=== PATIENT | female | born 1975 | race Two or more races ===

== ENCOUNTER 2023-10-29 10:18 | Inpatient (IN) | payer MEDICAID, OTHER ==
[~2023-10-29] VITALS: Ht 157.5 cm; Wt 80.0 kg
[2023-10-29] MEDS: SODIUM CHLORIDE 0.9% 1,000 ML IV ONE (11:14)
[2023-10-29 11:19] VITALS: PULSE 71; RESP 16; O2SAT 98
[2023-10-29 11:20] LABS: Basophils # (auto) 0 10 ^3/uL (0-0.2); Basophils % (auto) 0.4 % (0.0-2.0); Eosinophils # (auto) 0 10 ^3/uL (0-0.8); Hematocrit 32.6 % (36.0-46.0); Hemoglobin 10.3 g/dL (12.2-16.2); Lymphocytes # (auto) 2.8 10 ^3/uL (0.4-5.4); Neutrophils # (auto) 7.5 10 ^3/uL (1.6-8.6); Red Cell Distribution Width 16.6 % (11.8-14.3); White Blood Cell 11.2 10^3/uL (4.4-10.8)
[2023-10-29 11:23] LABS: Eosinophils % (auto) 0.3 % (0.0-7.0); Mean Corpuscular Hemoglobin 24.7 pg (28.0-32.0); Mean Corpuscular Hgb Conc. 31.7 g/dL (32.0-36.0); Mean Corpuscular Volume 77.9 fL (80.0-100.0); Monocytes # (auto) 0.8 10 ^3/uL (0-1.3); Monocytes % (auto) 7.3 % (0.0-12.0); Red Blood Cells 4.18 10^6/uL (4.0-5.20)
[2023-10-29 11:45] LABS: Alanine Aminotransferase 19 U/L (7-40); Albumin 4.1 g/dL (3.2-4.8); Alkaline Phosphatase 99 U/L (46-116); Anion Gap 7 (5-15); Aspartate Aminotransferase 14 U/L (13-40); BUN/Creatinine Ratio 18.8 (10.0-20.0); Blood Urea Nitrogen 9 mg/dL (9-23); Calcium 8.7 mg/dL (8.5-10.1); Carbon Dioxide 23 mmol/L (20-30); Chloride 109 mmol/L (98-107); Glucose 102 mg/dL (74-106); Magnesium 1.8 mg/dL (1.6-2.6); Potassium 3.5 mmol/L (3.5-5.1); Sodium 139 mmol/L (136-145)
[2023-10-29 11:46] LABS: Bilirubin, Total 0.6 mg/dL (0.2-1.0); Total Protein 6.7 g/dL (5.7-8.2)
[2023-10-29 11:59] LABS: Urine Bacteria None Seen /hpf (None Seen)
[2023-10-29 12:24] LABS: Urine Blood Negative /uL (Negative); Urine Clarity Clear (Clear); Urine Color Light-Yellow (Yellow); Urine Protein, UAD TRACE (Negative); Urine Specific Gravity 1.016 (1.001-1.035); Urine Urobilinogen Normal (Negative); Urine WBC 33 /hpf (0 - 5)
[2023-10-29] MEDS ORDERED: DOCUSATE SOD 100 MG CAP PO PRN (15:45)
[2023-10-29] MEDS: cefTRIAXone 1GM/50ML D5W 50 ML IV ONE (16:49)
[2023-10-29 16:51] LABS: % Iron Saturation 14.1 % (15-50)
[2023-10-29] MEDS: SODIUM CHLORIDE 0.9% 1,000 ML IV SCH (17:00)
[2023-10-29 17:05] LABS: Ferritin 4.7 ng/mL (10-291)
[2023-10-29 17:06] LABS: Folate (Folic Acid) 13.85 ng/mL (>5.38)
[2023-10-29] MEDS ORDERED: NITROGLYCERIN 0.4 MG SL TAB SL PRN (17:15)
[2023-10-29] MEDS ORDERED: MORPHINE SULFATE INJ 2 MG/ml SYRG IV PRN (17:15)
[2023-10-29] MEDS: MORPHINE SULFATE INJ 2 MG/ml SYRG IV PRN (17:58)
[2023-10-29] MEDS: ONDANSETRON HCL 4 MG/2 ML VIAL IV PRN (17:59)
[2023-10-29] MEDS: ASPirin 325 MG TAB PO ONE (18:51)
[2023-10-29] MEDS: CLOPIDOGREL BISULFATE 75 MG TAB PO ONE (18:51)
[2023-10-29 19:07] LABS: Amphetamine Screen, Urine Neg (NEGATIVE); Barbiturate Scree,Urine Neg (NEGATIVE); Benzodiazephine Screen, Urine Neg (NEGATIVE); Cocaine Screen, Urine Neg (NEGATIVE); Opiate Scree,Urine Neg (NEGATIVE); Phencyclidine Screen, Urine Neg (NEGATIVE)
[2023-10-29 19:08] LABS: Cannabinoid Screen, Urine Neg (NEGATIVE)
[2023-10-29 20:05] LABS: Magnesium 1.8 mg/dL (1.6-2.6)
[2023-10-29 21:09] VITALS: BP 104/59; PULSE 59; RESP 20; TEMP 98.1; O2SAT 95
[2023-10-29 21:10] VITALS: PULSE 65; PULSE 77; RESP 16; O2SAT 98
[2023-10-29] MEDS: ATORVASTATIN 20 MG TAB PO SCH (22:17)
[2023-10-30 01:00] VITALS: BP 91/42; PULSE 64; RESP 18; TEMP 98.3; O2SAT 94
[2023-10-30 01:15] VITALS: BP 99/50; PULSE 60
[2023-10-30 05:00] VITALS: BP 90/49; PULSE 61; RESP 19; TEMP 98.3; O2SAT 96
[2023-10-30 07:19] LABS: Alanine Aminotransferase 15 U/L (7-40); Albumin 3.2 g/dL (3.2-4.8); Alkaline Phosphatase 76 U/L (46-116); Anion Gap 4 (5-15); Aspartate Aminotransferase 11 U/L (13-40); BUN/Creatinine Ratio 14.6 (10.0-20.0); Blood Urea Nitrogen 7 mg/dL (9-23); Calcium 7.9 mg/dL (8.5-10.1); Carbon Dioxide 23 mmol/L (20-30); Chloride 114 mmol/L (98-107); Glucose 104 mg/dL (74-106); LDL Cholesterol 97 mg/dL (< 100); Potassium 3.7 mmol/L (3.5-5.1); Sodium 141 mmol/L (136-145); Triglycerides 157 mg/dL (< 150)
[2023-10-30 07:20] LABS: Bilirubin, Total 0.3 mg/dL (0.2-1.0); Cholesterol 161 mg/dL (< 200); HDL Cholesterol 46 mg/dL (40-59); Total Protein 5.1 g/dL (5.7-8.2)
[2023-10-30 07:23] LABS: Basophils # (auto) 0 10 ^3/uL (0-0.2); Basophils % (auto) 0.3 % (0.0-2.0); Eosinophils # (auto) 0.1 10 ^3/uL (0-0.8); Eosinophils % (auto) 0.7 % (0.0-7.0); Hematocrit 27.9 % (36.0-46.0); Hemoglobin 8.8 g/dL (12.2-16.2); Lymphocytes # (auto) 2.8 10 ^3/uL (0.4-5.4); Lymphocytes % (auto) 30.9 % (10.0-50.0); Mean Corpuscular Hemoglobin 25.1 pg (28.0-32.0); Mean Corpuscular Hgb Conc. 31.5 g/dL (32.0-36.0); Mean Corpuscular Volume 79.5 fL (80.0-100.0); Monocytes # (auto) 0.9 10 ^3/uL (0-1.3); Monocytes % (auto) 9.6 % (0.0-12.0); Neutrophils # (auto) 5.2 10 ^3/uL (1.6-8.6); Neutrophils % (auto) 58.5 % (37.0-80.0); Nucleated Red Blood Cells % 0.1 %; Red Cell Distribution Width 16.6 % (11.8-14.3)
[2023-10-30 08:00] VITALS: PULSE 61
[2023-10-30 09:00] VITALS: BP 107/61; PULSE 64; RESP 16; TEMP 97.9; O2SAT 96
[2023-10-30] MEDS: cefTRIAXone 1GM/50ML D5W 50 ML IV SCH (10:00)
[2023-10-30] MEDS: ASPirin 81 mg TAB PO SCH (10:05)
[2023-10-30] MEDS: CLOPIDOGREL BISULFATE 75 MG TAB PO SCH (10:05)
[2023-10-30 10:55] VITALS: BP_SYST 103; BP_SYST 105; BP_SYST 95; BP_DIAS 55; BP_DIAS 58; BP_DIAS 63; PULSE 60; PULSE 66; PULSE 71
[2023-11-01 03:06] LABS: RPR Non Reactive (Non Reactive)
== END 2023-10-30 17:35 | disposition home or self-care (01) | DRG 422 ==
LOC: ER 10:18 → TELE 17:04 → TELE-EAST 21:09
PROVIDERS: ADMIT Nurse Practitioner Family; ATTEND Nurse Practitioner Family
DX: E86.0 Dehydration (principal); S09.8XXA Other specified injuries of head, initial encounter; D64.9 Anemia, unspecified; S00.81XA Abrasion of other part of head, initial encounter; Z79.899 Other long term (current) drug therapy; W18.39XA Other fall on same level, initial encounter; Y93.89 Activity, other specified; Y92.89 Other specified places as the place of occurrence of the external cause; Y99.8 Other external cause status
CPT/HCPCS: 36415; 70450; 71045; 72125; 80053; 80061; 80307; 80320; 81001; 82607; 82728; 82746; 82962; 83540; 83550; 83605; 83615; 83735; 84100; 84443; 84484; 84702; 85025; 85045; 86592; 93005; 93306; 93886; 96361; 96365; 96366; 96375; 97116; 97163; 97530; G0378; J2405

== ENCOUNTER 2025-04-10 04:35 | Emergency (ER) | payer MEDICAID ==
[~2025-04-10] VITALS: Ht 157.5 cm; Wt 79.1 kg
--- NOTE | 2025-04-10 04:52 | ED.PDOC ---
GI ASSESSMENT HPI Comments PATIENT PRESENTS TO ED WITH COMPLAINTS OF INTERMITTENT DULL PELVIC DISCOMFORT, AND CONSTIPATION X1 WEEK. LAST BOWEL MOVEMENT YESTERDAY. PATIENT DENIES N/V. PREVIOUS EPISODE APPOX 1-2 WEEKS AGO. DENIES FEVER, CHILLS, NAUSEA, VOMITING, DIARRHEA, VAGINAL DISCHARGE, OR URINARY SYMPTOMS. Chief Complaint: Constipation Time Seen by MD: 04:48 Primary Care Provider: Unknown Reviewed Notes: [employer] Notes, Medications, Allergies Allergies: Coded Allergies: NO KNOWN ALLERGIES (Unverified , 10/29/23) Home Meds No Active Prescriptions or Reported Meds Information Source: Patient Mode of Arrival: Ambulatory Past Medical History PAST MEDICAL HISTORY: Denies Surgical History: Denies all surgeries CRATE TIER History: No Pertinent CRATE TIER History Family History Family History: Reviewed,noncontributory to illness, No family hx of Cancer, No family hx of DM, No family hx of Heart linn, No family hx of HTN, No family hx ofKidney linn, No family hx of Liver linn, No family hx of Lung linn, No family hx of Stroke Social History Smoker: Non-Smoker Alcohol: Denies ETOH Use Drugs: Denies Drug Use Lives In: Home All Other Systems: Reviewed and Negative (SEE HPI) Physical Exam General Appearance: No Apparent Distress, Normal HEENT: Pharynx Normal Neck: Full Range of Motion, Non-Tender Respiratory: Lungs Clear, No Respiratory Distress, Normal Breath Sounds Cardiovascular: No Edema, No JVD, No Murmur, No Gallop, Normal Peripheral Pulses, Regular Rate/Rhythm Breast Exam: Deferred Gastrointestinal: No Organomegaly, No Pulsatile Mass, Normal Bowel Sounds, Soft, Tenderness (LEFT LOWER QUADRANT SUPRAPUBIC) Genitalia: Deferred Pelvic: Deferred Rectal: Deferred Extremities: Normal range of motion, No pedal edema Musculoskeletal : Apperance: Normal Neurologic: Alert, No Motor Deficits, Normal Affect, Normal Mood, No Sensory Deficits Cerebellar Function: Normal Reflexes: NOT DONE Skin: Dry, Normal Color, Warm Lymphatic: No Adenopathy Was a procedure done? Was a procedure done?: No GI differential Dx Differential Diagnosis: Bowel Obstruction, Cholangitis, Cholecystitis, Constipation, Diverticular disease, Inflammatory BD, PID, Urinary Obstruction, UTI, Urolithiasis, Kidney Stone X-Ray, Labs, Meds, VS Vital Signs Date Time Temp Pulse Resp B/P (MAP) Pulse Ox O2 Delivery O2 Flow Rate FiO2 12/14/25 05:00 97.8 79 18 131/60 (83) 95 97.8 04/10/25 04:37 97.9 84 18 157/112 97 97.9 Lab Test 04/10/25 05:17 04/10/25 05:00 Range/Units White Blood Count 12.9 H 4.4-10.8 10^3/uL Red Blood Count 4.55 4.0-5.20 10^6/uL Hemoglobin 14.1 12.2-16.2 g/dL Hematocrit 41.6 36.0-46.0 % Mean Corpuscular Volume 91.3 80.0-100.0 fL Mean Corpuscular Hemoglobin 31.0 28.0-32.0 pg Mean Corpuscular Hemoglobin Concent 34.0 32.0-36.0 g/dL Red Cell Distribution Width 12.6 11.8-14.3 % Platelet Count 354 140-450 10^3/uL Mean Platelet Volume 7.1 6.9-10.8 fL Neutrophils (%) (Auto) 75.2 37.0-80.0 % Lymphocytes (%) (Auto) 17.7 10.0-50.0 % Monocytes (%) (Auto) 6.2 0.0-12.0 % Eosinophils (%) (Auto) 0.5 0.0-7.0 % Basophils (%) (Auto) 0.4 0.0-2.0 % Neutrophils # (Auto) 9.7 H 1.6-8.6 10 ^3/uL Lymphocytes # (Auto) 2.3 0.4-5.4 10 ^3/uL Monocytes # (Auto) 0.8 0-1.3 10 ^3/uL Eosinophils # (Auto) 0.1 0-0.8 10 ^3/uL Basophils # (Auto) 0 0-0.2 10 ^3/uL Nucleated Red Blood Cells 0.1 % Sodium Level 139 136-145 mmol/L Potassium Level 3.7 3.5-5.1 mmol/L Chloride Level 106 98-107 mmol/L Carbon Dioxide Level 23 20-31 mmol/L Anion Gap 10 5-15 Blood Urea Nitrogen 11 9-23 mg/dL Creatinine 0.49 L 0.550-1.02 mg/dL Glomerular Filtration Rate Calc 115 >90 mL/min BUN/Creatinine Ratio 22.4 H 10.0-20.0 Serum Glucose 113 H 74-106 mg/dL Calcium Level 8.7 8.7-10.4 mg/dL Total Bilirubin 0.5 0.2-1.0 mg/dL Aspartate Amino Transferase (AST) 26 13-40 U/L Alanine Aminotransferase (ALT) 33 7-40 U/L Alkaline Phosphatase 83 46-116 U/L Total Protein 7.3 5.7-8.2 g/dL Albumin 4.4 3.2-4.8 g/dL Urine Color Colorless Yellow Urine Clarity Clear Clear Urine pH 6.5 5.0-9.0 Urine Specific [place] 1.011 1.001-1.035 Urine Protein Negative Negative Urine Ketones Negative Negative Urine Blood 3+ H Negative /uL Urine Nitrite Negative Negative Urine Bilirubin Negative Negative Urine Urobilinogen Normal Negative mg/dL Urine Leukocyte Esterase Negative Negative /uL Urine RBC 94 0 - 4 /hpf Urine Microscopic WBC 1 0-5 /HPF Urine Squamous Epithelial Cells Few <5 /hpf Urine Bacteria Few H None Seen /hpf Urine Glucose Normal Normal mg/dL Current Medications Medications (Trade) Dose Ordered Sig/Leyla Route Start Time Stop Time Status Last Admin Ondansetron HCl (Zofran) 4 mg ONCE ONCE IV 04/10/25 05:15 04/10/25 05:16 DC 04/10/25 05:39 Ketorolac Tromethamine (Toradol Injection) 30 mg ONCE ONCE IV 04/10/25 05:15 04/10/25 05:16 DC 04/10/25 05:39 Sodium Chloride 1,000 ml @ 1,000 mls/hr Q1H ONCE IV 04/10/25 05:15 04/10/25 06:14 DC 04/10/25 05:39 Time of 1ST Reevaluation: 04:48 Reevaluation 1ST: Unchanged Reevaluation 2ND: Improved Patient Education/Counseling: Diagnosis, Treatment, Need For Follow Up Family Education/Counseling: No Family Present SEPSIS Sepsis Screen Date sepsis recognized/suspect: Apr 10, 2025 Time Sepsis recognized/suspect: 441 Recent Procedure: No On Antibiotic Therapy: No Respiratory Rate >20: No Heart Rate >90: No Temp<36 C (96.8 F) or >38.3 C: No SBP <90 or MAP <65 mmHG: No New Acute Mental Status Change: No Is the patient on CPAP, BIPAP,: No Physician Orders Ct Ab Pel Wo Con-No Oral Or Iv (04/10/25 04:46) Vital Signs Date Time Temp Pulse Resp B/P (MAP) Pulse Ox O2 Delivery O2 Flow Rate FiO2 04/10/25 05:00 97.8 79 18 131/60 (83) 95 97.8 04/10/25 04:37 97.9 84 18 157/112 97 97.9 Laboratory Tests Test 04/10/25 05:17 White Blood Count 12.9 10^3/uL (4.4-10.8) H Medications Medications Dose Ordered Sig/Leyla Route Start Time Stop Time Status Last Admin Dose Admin Ketorolac Tromethamine 30 mg ONCE ONCE IV 04/10/25 05:15 04/10/25 05:16 DC 04/10/25 05:39 Ondansetron HCl 4 mg ONCE ONCE IV 04/10/25 05:15 04/10/25 05:16 DC 04/10/25 05:39 Sodium Chloride 1,000 ml @ 1,000 mls/hr Q1H ONCE IV 04/10/25 05:15 04/10/25 06:14 DC 04/10/25 05:39 Departure 1 Departure Time of Disposition: 07:38 (Patient presented with abdominal pain that was concerning for possible appendicits, gastritis, cholecystitis, colitis, gastroenteritis, or orther possible surgical emergency. Data: 1. I ordered and reviewed the result of at least 3 labs including a CBC, BMP, and Urinalysis. 2. I independently interpreted the following tests: CT Abdoment and Pelvis is concerning for benign abdomen .Risk:This patient has a high risk of morbidity due to further diagnostic testing or treatment and may suffer from an acute abdominal process disorder. Fortunately workup reveals benign abdomen concern for constipation and patient can be safely discharged to home with outpatient follow up.) Impression: Primary Impression: Constipation Additional Impression: Abdominal pain Disposition: HOME / SELF CARE / HOMELESS Condition: Stable Additional Instructions: Your workup today was benign including normal labs. We will CT scan does have a lot of stool wall it concerning for possible constipation. You can take [id number] MiraLax daily as needed for constipation. For pain you can take the followinam: Ibuprofen 400mg with food Noon: Acetaminophen 1000mg 4pm: Ibuprofen 400mg with food 8pm: Acetaminophen 1000mg You should follow up with your regular doctor within one week to ensure you are doing better. If your symptoms worsen or you have any other concerns then please return to the ER. e-Prescriptions No Active Prescriptions or Reported Meds Critical Care Note Critical Care Time?: No Stability Stability form required: JOSE Edward Apr 10, 2025 04:52 LIDYA DUNHAM MD Apr 10, 2025 07:39
[2025-04-10 05:30] LABS: Hematocrit 41.6 % (36.0-46.0); Hemoglobin 14.1 g/dL (12.2-16.2); Mean Corpuscular Hemoglobin 31.0 pg (28.0-32.0); Mean Corpuscular Volume 91.3 fL (80.0-100.0); Nucleated Red Blood Cells % 0.1 %
[2025-04-10] MEDS: KETOROLAC TROMETH 30 MG/ML 1ML VIAL IV ONE (05:39)
[2025-04-10] MEDS: ONDANSETRON HCL 4 MG/2 ML VIAL IV ONE (05:39)
[2025-04-10] MEDS: SODIUM CHLORIDE 0.9% 1,000 ML IV ONE (05:39)
[2025-04-10 05:40] LABS: Alanine Aminotransferase 33 U/L (7-40); Albumin 4.4 g/dL (3.2-4.8); Alkaline Phosphatase 83 U/L (46-116); Anion Gap 10 (5-15); BUN/Creatinine Ratio 22.4 (10.0-20.0); Blood Urea Nitrogen 11 mg/dL (9-23); Calcium 8.7 mg/dL (8.7-10.4); Carbon Dioxide 23 mmol/L (20-31); Chloride 106 mmol/L (98-107); Potassium 3.7 mmol/L (3.5-5.1); Sodium 139 mmol/L (136-145); Total Protein 7.3 g/dL (5.7-8.2)
[2025-04-10 05:41] LABS: Bilirubin, Total 0.5 mg/dL (0.2-1.0)
[2025-04-10 05:53] LABS: Glucose 113 mg/dL (74-106)
--- NOTE | 2025-04-10 06:06 | DVH ---
EXAM: CT CT AB PEL WO CON-NO ORAL OR IV History: LOWER PELVIC PAIN Comparison Study: None TECHNIQUE: Multidetector CT of the abdomen was performed from lung bases to pubic symphysis. Imaging was performed without IV contrast. Axial, coronal and sagittal multiplanar reformats were obtained from the axial data set by the technologist. Radiation Dose Information: CT Dose: CTDI volume is 10.66 mGy. Dose-length product is 692.07 mGy*cm FINDINGS: Evaluation of solid organs is limited due to lack of intravenous contrast use. FINDINGS: Lung Bases: No acute or significant lung base finding. Normal heart size. No pleural or pericardial effusion. Liver: The liver is normal in size. No focal lesions. Gallbladder and Biliary Tree: Unremarkable Spleen: Unremarkable Pancreas: The pancreas is grossly normal in appearance. Adrenal Glands: Unremarkable Kidneys: Kidneys are grossly normal without calculi or hydronephrosis. Bladder: Grossly unremarkable for degree of distention. Bowel: The stomach is grossly normal in appearance. Small bowel and colon are normal in caliber and distribution. The appendix is not visualized; however, no secondary findings of acute appendicitis identified. Ascites: Absent Lymphadenopathy: No mesenteric, retroperitoneal or periportal lymphadenopathy. Abdominal Wall and Mesentery: Unremarkable. Vasculature: The visualized abdominal aorta is normal in size and caliber. Evaluation of abdominal and pelvic vessels is limited due to lack of intravenous contrast. Pelvic Organs: Unremarkable Musculoskeletal: No aggressive focal bony lesions, acute fractures or dislocation. Soft tissues: Unremarkable IMPRESSION: No acute abdominal or pelvic finding. Radiation optimization: All CT scans at this facility use at least one of these dose optimization techniques: automated exposure control mA and/or kV adjustment per patient size (includes targeted exams where dose is matched to clinical indication) or iterative reconstruction.
[2025-04-10 06:16] LABS: Urine Protein, UAD Negative (Negative)
[2025-04-10 07:58] VITALS: BP 104/57; PULSE 81; RESP 16; TEMP 98.3; O2SAT 96
== END 2025-04-10 08:02 | disposition home or self-care (01) ==
LOC: ER 04:35
DX: K59.00 Constipation, unspecified (principal); R10.9 Unspecified abdominal pain; Z79.899 Other long term (current) drug therapy
CPT/HCPCS: 36415; 74176; 80053; 81001; 85025; 96361; 96374; 96375; 99285; J1885; J2405; J7030